=== PATIENT | male | born 2000 | race African-American/Black ===

== ENCOUNTER 2020-06-06 16:02 | Emergency (ER) | payer MEDICAID ==
[~2020-06-06] VITALS: Ht 172.7 cm; Wt 95.3 kg
[2020-06-06 16:04] VITALS: BP 116/74; Ht 172.7 cm; Wt 95.3 kg
== END 2020-06-06 17:23 | disposition home or self-care (01) ==
LOC: ED 16:02
DX: R05 Cough (principal); J45.909 Unspecified asthma, uncomplicated